=== PATIENT | male | born 1990 | race Caucasian/White ===

== ENCOUNTER 2018-11-02 08:43 | Emergency (ER) | payer OTHER ==
[~2018-11-02] VITALS: Ht 175.3 cm; Wt 99.5 kg
[2018-11-02 08:43] VITALS: BP 141/97
[2018-11-02] MEDS ORDERED: TERB1CRE12 TOP (09:28)
== END 2018-11-02 09:33 | disposition home or self-care (01) ==
LOC: M ED 08:43
DX: B35.3 Tinea pedis (principal); Z79.2 Long term (current) use of antibiotics

== ENCOUNTER 2019-04-20 23:37 | Emergency (ER) | payer OTHER ==
[~2019-04-20] VITALS: Ht 175.3 cm; Wt 96.4 kg
[~2019-04-20 23:37] MED LIST: TERB1CRE12 TOP
[2019-04-20] MEDS ORDERED: AMOX250C3 PO (23:46)
--- NOTE | 2019-04-21 01:41 | REPVR ---
EXAM: CT Abdomen and Pelvis Without Contrast EXAM DATE/TIME: 04/21/19 (1:21am) CLINICAL HISTORY: 28 year old male with left flank pain / left-sided abdominal pain TECHNIQUE: Imaging protocol: Computed tomography images of the abdomen and pelvis without contrast. Radiation optimization: All CT scans at this facility use at least one of these dose optimization techniques: automated exposure control; mA and/or kV adjustment per patient size (includes targeted exams where dose is matched to clinical indication); or iterative reconstruction. COMPARISON: No relevant prior studies available FINDINGS: Lower lung jane: Small calcified granuloma laterally in the right lung base. Liver: Normal. No solid mass. Gallbladder and bile ducts: Normal. No calcified stones. No ductal dilatation. Pancreas: Normal. No ductal dilatation. Spleen: No splenomegaly. A few small splenic calcifications. Adrenals: Normal. No mass. Kidneys and ureters: No hydronephrosis. Punctate non-obstructing right intrarenal calcification. Stomach and bowel: Normal. No bowel obstruction. No mucosal thickening. Appendix: A normal appendix is visualized. Intraperitoneal space: Normal. No free air. No significant fluid collection. Vasculature: Normal. No abdominal aortic aneurysm. Lymph nodes: Normal. No enlarged lymph nodes. Bladder: Unremarkable as visualized. Reproductive: Unremarkable as visualized. Bones/joints: No acute fracture nor dislocation. Soft tissues: Unremarkable. IMPRESSION: No acute findings. No hydronephrosis is appreciated. No obstructing radiodense urinary tract stones are visualized. Electronically signed by: Leyla Renteria On 04/21/2019 01:41:00 AM
[2019-04-21 02:06] VITALS: BP 148/87
== END 2019-04-21 02:07 | disposition home or self-care (01) ==
LOC: M ED 23:37
DX: N20.0 Calculus of kidney (principal)